=== PATIENT | female | born 1980 | race Asian ===

== ENCOUNTER 2023-02-09 08:16 | Emergency (ER) | payer OTHER ==
[~2023-02-09] VITALS: Ht 157.5 cm; Wt 62.6 kg
[2023-02-09 08:22] VITALS: BP 146/96
--- NOTE | 2023-02-09 08:22 | NUR ---
bibs for left ankle pain since yesterday. sprained ankle. slight swelling. ambulates with limp. aao x4. resp even and nonlabored
[2023-02-09] MEDS ORDERED: NAPR-54 PO (10:46)
[2023-02-09 10:58] VITALS: BP 132/74
== END 2023-02-09 10:58 | disposition home or self-care (01) ==
LOC: MED 08:16
DX: S93.402A Sprain of unspecified ligament of left ankle, initial encounter (principal); X50.1XXA Overexertion from prolonged static or awkward postures, initial encounter; Y93.89 Activity, other specified; Y92.89 Other specified places as the place of occurrence of the external cause; Y99.8 Other external cause status
CPT/HCPCS: 29515; 73610; 99283